=== PATIENT | male | born 2005 | race Two or more races ===

== ENCOUNTER 2025-02-09 22:27 | Emergency (ER) | payer OTHER ==
[~2025-02-09] VITALS: Ht 175.3 cm; Wt 79.5 kg
[2025-02-09] MEDS: PROPARACAINE HCL 0.5% 15 ML OPHTHALMIC SOLUTION OS ONE (23:01)
[2025-02-10 06:07] VITALS: TEMP 97.7
[2025-02-10] MEDS: PERTUSS(ACELL),DIPH,TET/PF 0.5 ML SYRINGE [ADULT] IM. ONE (07:37)
[2025-02-10] MEDS: PROPARACAINE HCL 0.5% 15 ML OPHTHALMIC SOLUTION OS ONE (08:15)
[2025-02-10 09:45] VITALS: BP 133/61; PULSE 63; RESP 15; O2SAT 98
== END 2025-02-10 10:15 | disposition short-term general hospital (02) ==
LOC: EMS 22:30
DX: H10.212 Acute toxic conjunctivitis, left eye (principal)
CPT/HCPCS: 90471; 90715; 99285